=== PATIENT | male | born 1975 | race Caucasian/White ===

== ENCOUNTER → 2020-04-25 09:29 | Outpatient (CLI) | payer SELFPAY ==
[2020-04-25 12:50] LABS: Hematocrit 48.1 % (40-54); Hemoglobin 16.4 g/dL (13.0-16.5); Mean Corp Hgb Conc 34.1 g/dL (32-36); Mean Corpuscular Volume 87.9 fL (80-94); Mean Platelet Vol. 9.3 fl (6.2-12.0); Platelet Count 280 K/mm3 (150-450); RBC Distribution Width CV 12.6 % (11.6-14.6); RBC Distribution Width SD 39.8 fl (35.1-43.9); Red Blood Count 5.47 M/mm3 (4.6-6.2); White Blood Count 5.1 K/mm3 (4.4-11.0)
[2020-04-25 12:52] LABS: Homocysteine 8.6 umol/L (3.2-10.7)
[2020-04-25 13:07] LABS: Hemoglobin A1c 5.2 % (3.8-5.6)
[2020-04-25 13:15] LABS: Progesterone Level 0.76 ng/mL (See Comment); Vitamin B12 425 pg/mL (211-911); Vitamin D,25 Hydroxy 49.8 ng/mL
[2020-04-25 14:31] LABS: ALB/GLOB Ratio 1.1 RATIO (0.9-2.4); AST(SGOT) 19 U/L (15-37); Alanine Aminotransfer ALT/SGPT 36 U/L (16-61); Alkaline Phosphatase 63 U/L (45-117); Anion Gap 4 (5-15); BUN 15 mg/dL (7-18); BUN/Creat Ratio 14.3 RATIO (10-20); Calcium,Total 9.1 mg/dL (8.5-10.1); Chloride 102 mmol/L (98-107); Cholesterol 143 mg/dL (200); Creatinine, Serum 1.05 mg/dL (0.70-1.30); EST Glomerular Filtration Rate 82 mL/min (>60); Est Glom Filt Rate - Afr Amer 99 mL/min (>60); Estradiol 40.8 pg/mL; Follicle Stimulating Hormone < 0.2 mIU/mL; Globulin 3.6 g/dL (2.2-4.2); Glucose 94 mg/dL (74-106); High Density Lipoprotein 45 mg/dL; Iron 83 ug/dL (65-175); Luteinizing Hormone < 0.2 mIU/mL; Magnesium 2.2 mg/dL (1.6-2.6); PSA,Total - Annual Screen 1.19 ng/mL (0.00-4.00); Potassium 4.1 mmol/L (3.5-5.1); Prolactin 11.6 ng/mL; Protein, Total 7.6 g/dL (6.4-8.2); Sodium Level 137 mmol/L (136-145); T3 Uptake 34 % (33-40); T4 Free Direct 0.86 ng/dL (0.76-1.46); Thyroid Stim Hormone (TSH) 1.64 uIU/mL (0.358-3.74); Triglycerides 79 mg/dL; Very Low Density Lipoprotein 16 mg/dL (5-40)
[2020-04-26 10:09] LABS: T3 Total - Triiodothyronine 1.25 ng/mL (0.6-1.81)
[2020-04-28 14:10] LABS: Insulin Like Growth Factor 182 ng/mL (84-270); Testosterone, % Free 4.71 % (1.50-4.20); Testosterone, Free 63.16 ng/dL (5.00-21.00)
[2020-04-28 15:43] LABS: Sex Hormone-binding Globulin 31.4 nmol/L (16.5-55.9); Testosterone, Total 1341 ng/dL (264-916)
== END ==
PROVIDERS: PCP Family Medicine; Referring Provider Nurse Practitioner Family; Visit Provider Nurse Practitioner Family
DX: R53.82 Chronic fatigue, unspecified (principal); M62.81 Muscle weakness (generalized); E29.1 Testicular hypofunction
CPT/HCPCS: 36415; 80053; 80061; 82306; 82533; 82607; 82627; 82670; 82746; 83001; 83002; 83036; 83090; 83540; 83735; 84144; 84146; 84153; 84270; 84305; 84402; 84403; 84436; 84439; 84443; 84479; 84480; 85027; 86141; 82626; G0103

== ENCOUNTER → 2020-09-17 09:48 | Outpatient (CLI) | payer SELFPAY ==
--- NOTE | 2020-09-17 09:54 | CT_ITS ---
STUDY: CT MAXILLOFACIAL SINUSES REASON FOR EXAM: Male, 44 years old. SINUSITIS,NASAL POLYPS RADIATION DOSAGE (If Supplied By Facility): CTDIvol = ( 33.06 ) mGy, DLP = ( 895.83 ) mGycm TECHNIQUE: The patient was scanned in a multi detector CT scanner. High resolution axial imaging was performed without the administration of intravenous contrast material. Sagittal and coronal images were reconstructed. Individualized dose optimization techniques were used for this CT. COMPARISON: None. FINDINGS: Left maxillary sinus is opacified with mucosal/soft tissue extending through the semilunar hiatus into the medial nasal cavity and posteriorly about the nasal choanae into the nasopharynx with a polypoid bulbous appearance. There is partial opacification of the anterior left ethmoid sinus with occlusion of the left nasofrontal recess. However, left frontal sinus is clear. Right frontal, ethmoid, both sphenoid and right maxillary sinuses are clear. Base of skull is normal. Orbits and contents are normal. CT/Sinus/Facial Bone IMPRESSION: Left maxillary, ethmoid sinu-nasal polyposis. ENT referral advised. Electronically Signed: Adán Holt MD at 18:41 EDT Tel , Service support ,
== END ==
PROVIDERS: PCP Family Medicine; Referring Provider Otolaryngology; Visit Provider Otolaryngology
DX: J32.9 Chronic sinusitis, unspecified (principal); J33.8 Other polyp of sinus
CPT/HCPCS: 70486

== ENCOUNTER → 2020-10-19 | Outpatient (CLI) | payer MEDICARE, SELFPAY | END | disposition home or self-care (01) | PROVIDERS: Visit Provider Otolaryngology | DX: U07.1 COVID-19 (principal) | CPT/HCPCS: 87635; U0005; U0003 ==

== ENCOUNTER → 2020-12-06 | Outpatient (CLI) | payer MEDICARE, SELFPAY ==
[2020-12-06 18:21] LABS: Probe Check PASS; Specimen Processing Control PASS
== END | disposition home or self-care (01) ==
LOC: LABSPEC 15:19
PROVIDERS: PCP Family Medicine; Visit Provider Otolaryngology
DX: Z03.818 Encounter for observation for suspected exposure to other biological agents ruled out (principal); Z11.59 Encounter for screening for other viral diseases
CPT/HCPCS: 87635; U0005; U0003

== ENCOUNTER → 2020-12-12 | Outpatient (CLI) | payer SELFPAY ==
--- NOTE | 2020-12-12 10:35 | NASAL_PTH ---
PATIENT: CHLEO METCALF [facility] U#:[id number] AGE/SX: 45/M ROOM: RE12/12/[address]: Dr. Norberto Jones MD : 1975 BED: DIS: 12/12/2020 SPEC #: [id number] RECD: 12/12/20 15:12 STATUS: TRINY RETita #: [id number] TROY: 12/12/20 10:[address]: Norberto Jones DEPT: SURGICAL PATHOLOGY RECD BY: Georgie Reyes ENTERED: 12/13/20 08:45 SP TYPE: NASAL SPEC OTHR DR: Dr. Kervin Richardson III, MD [facility] Tissues: Ethmoid sinus, NOS Procedures: Surgery Specimen Level IV HEADER OPERATION: Left maxillary antrostomy with tissue removal, left anterior ethmoidectomy, polyp of nasal cavity PRE-OP DIAGNOSIS: Chronic sinusitis TISSUE SUBMITTED: Left sinus contents MICROSCOPIC DIAGNOSIS Left sinus contents: Fragments of benign mucosal polyp. Fragments of respiratory mucosa with chronic inflammation. SJ:roger 12/14/2020 MICROSCOPIC DESCRIPTION Slides are reviewed. GROSS DESCRIPTION Received in fixative is one container labeled with the patient's name and designated left sinus contents. The specimen consists of multiple irregular and polypoid fragments of pink-wyatt soft tissue that in aggregate measure 6 x 3 x 0.6 cm. The specimen is totally submitted in two cassettes. / AM:roger 12/13/20 TC:5 CPT: 79551
== END | disposition home or self-care (01) ==
LOC: LABSPEC 15:42
PROVIDERS: PCP Family Medicine; Referring Provider Otolaryngology; Visit Provider Otolaryngology
DX: J33.0 Polyp of nasal cavity (principal); J32.8 Other chronic sinusitis
CPT/HCPCS: 88305

== ENCOUNTER 2024-12-28 15:27 | Outpatient (CLI) | payer SELFPAY ==
--- NOTE | 2024-12-28 10:30 | ETH_PTH ---
PATIENT: CHELO METCALF LOC: [facility] U#:[id number] AGE/SX: 49/M ROOM: RE12/28/[address]: Dr. Norberto Jones MD : 1975 BED: DIS: 12/28/2024 SPEC #: [id number] RECD: 12/28/24 15:07 STATUS: TRINY DAVID #: [id number] TROY: 12/28/24 10:[address]: Norberto Jones DEPT: SURGICAL PATHOLOGY RECD BY: Eulogio Woods Tissues: A - Ethmoid sinus, NOS Procedures: Surgery Specimen Level IV HEADER OPERATION: Maxillary antrostomy with tissue removal PRE-OP DIAGNOSIS: Polyp of nasal cavity, other chronic sinusitis TISSUE SUBMITTED: A- Left maxillary sinus contents MICROSCOPIC DIAGNOSIS A. Left maxillary sinus contents, removal: - Inflammatory sinonasal polyp. MICROSCOPIC DESCRIPTION Slides are reviewed. GROSS DESCRIPTION A. Received in formalin labeled with the patient's name and date of . Designated as left maxillary sinus content is a 5.3 x 4.2 x 0.9 cm aggregate of wyatt-pink tissue fragments and clotted blood and a 2.3 x 2.3 x 1.1 cm wyatt-yellow edematous polypoid tissue fragment. Staff Pharmacist sections are submitted in 3 cassettes as follows: A1: Tissue fragmentsA2-A3: Polypoid tissue fragment OK 12/29/2024 CPT:66132
== END 2024-12-28 23:59 | disposition home or self-care (01) ==
PROVIDERS: Referring Provider Otolaryngology; Visit Provider Otolaryngology
DX: J33.0 Polyp of nasal cavity (principal); J32.8 Other chronic sinusitis
CPT/HCPCS: 88305